=== PATIENT | male | born 1995 | race Caucasian/White ===

== ENCOUNTER 2019-11-05 22:04 | Emergency (ER) | payer OTHER ==
[~2019-11-05] VITALS: Ht 185.4 cm; Wt 88.0 kg
[2019-11-05 22:08] VITALS: BP 142/75
[2019-11-05] MEDS ORDERED: LIDOCAINE-MPF 2% ,5ML SQ ONE (22:30)
[2019-11-05] MEDS ORDERED: LIDOCAINE-MPF 2% ,5ML ONE (22:35)
--- NOTE | 2019-11-05 22:50 | NUR ---
PT TO ED WITH C/O LACERATION TO RIGHT UPPER BACK AFTER WRESTING WITH HIS FRIEND AND FALLING ON A BEER BOTTLE.
== END 2019-11-05 23:15 | disposition home or self-care (01) ==
LOC: ED 23:13
DX: S21.119A Laceration without foreign body of unspecified front wall of thorax without penetration into thoracic cavity, initial encounter (principal); F10.120 Alcohol abuse with intoxication, uncomplicated; K50.90 Crohn's disease, unspecified, without complications; Y90.9 Presence of alcohol in blood, level not specified; W18.00XA Striking against unspecified object with subsequent fall, initial encounter; Y93.89 Activity, other specified; Y92.89 Other specified places as the place of occurrence of the external cause; Y99.8 Other external cause status
CPT/HCPCS: 12032; 99284

== ENCOUNTER 2019-11-08 14:29 | Emergency (ER) | payer OTHER ==
[~2019-11-08] VITALS: Ht 177.8 cm; Wt 70.5 kg
[~2019-11-08 14:29] MED LIST: LIDOCAINE-MPF 1%, 5ML ONE
[2019-11-08 14:33] VITALS: BP 123/83
[2019-11-08] MEDS ORDERED: HYDROmorphone 1 MG/ML, 1ML INJ ONE (15:13)
[2019-11-08] MEDS ORDERED: ONDANSETRON 2MG/ML, 2ML ONE (15:13)
--- NOTE | 2019-11-08 15:23 | NUR ---
TASK RN: LAC REPAIR BY PA AND CLEAN DRY DRESSING IN PLACE. AWAITING DISCHARGE.
== END 2019-11-08 15:40 | disposition home or self-care (01) ==
LOC: ED 15:29
DX: S21.211D Laceration without foreign body of right back wall of thorax without penetration into thoracic cavity, subsequent encounter (principal); X58.XXXD Exposure to other specified factors, subsequent encounter
CPT/HCPCS: 12002; 99283